=== PATIENT | male | born 1960 | race Two or more races ===

== ENCOUNTER 2024-04-30 09:18 | Inpatient (IN) | payer MEDICAID, OTHER ==
[~2024-04-30] VITALS: Ht 195.6 cm; Wt 181.8 kg
[~2024-04-30 09:18] MED LIST: LISI20TA56 PO
[2024-04-30 10:13] LABS: Basophils # (auto) 0 10 ^3/uL (0-0.2); Eosinophils # (auto) 0.2 10 ^3/uL (0-0.8); Hemoglobin 15.5 g/dL (13.5-17.5); Lymphocytes # (auto) 2.4 10 ^3/uL (0.4-5.4); Lymphocytes % (auto) 11.1 % (10.0-50.0); Mean Corpuscular Hemoglobin 28.3 pg (28.0-32.0); Mean Corpuscular Hgb Conc. 33.1 g/dL (32.0-36.0); Mean Corpuscular Volume 85.7 fL (80.0-100.0); Monocytes # (auto) 5.3 10 ^3/uL (0-1.3); Monocytes % (auto) 24.2 % (0.0-12.0); Neutrophils # (auto) 13.9 10 ^3/uL (1.6-8.6); Neutrophils % (auto) 63.7 % (37.0-80.0); Red Blood Cells 5.49 10^6/uL (4.5-5.90); Red Cell Distribution Width 15.2 % (11.8-14.3); White Blood Cell 21.8 10^3/uL (4.4-10.8)
[2024-04-30 10:20] VITALS: PULSE 89; RESP 28; O2SAT 90
[2024-04-30 10:30] LABS: Alanine Aminotransferase 29 U/L (7-40); Albumin 4.2 g/dL (3.2-4.8); Alkaline Phosphatase 101 U/L (46-116); Anion Gap 6 (5-15); Aspartate Aminotransferase 25 U/L (13-40); BUN/Creatinine Ratio 16.5 (10.0-20.0); Blood Urea Nitrogen 17 mg/dL (9-23); Calcium 9.4 mg/dL (8.5-10.1); Carbon Dioxide 29 mmol/L (20-30); Chloride 105 mmol/L (98-107); Glucose 146 mg/dL (74-106); Potassium 3.9 mmol/L (3.5-5.1); Sodium 140 mmol/L (136-145)
[2024-04-30 10:30] LABS: Urine Bacteria None Seen /hpf (None Seen)
[2024-04-30 10:31] LABS: Bilirubin, Total 2.4 mg/dL (0.2-1.0); Total Protein 6.5 g/dL (5.7-8.2)
[2024-04-30 10:53] LABS: Urine Blood 1+ /uL (Negative); Urine Clarity Turbid (Clear); Urine Color Orange (Yellow); Urine Mucus MANY (None Seen); Urine Protein, UAD 2+ (Negative); Urine Specific Gravity 1.032 (1.001-1.035); Urine Urobilinogen 4 mg/dL (Negative); Urine WBC 14 /hpf (0 - 3)
[2024-04-30 12:55] LABS: COVID19 ANTIGEN SOFIA FIA NEGATIVE (NEGATIVE)
[2024-04-30] MEDS: cefTRIAXone 2GM/50ML D5W 50 ML IV ONE (13:05)
[2024-04-30] MEDS ORDERED: DOCUSATE SOD 100 MG CAP PO PRN (14:15)
[2024-04-30] MEDS ORDERED: hydrALAZINE HCL 20 MG/ML VL IV PRN (14:15)
[2024-04-30] MEDS ORDERED: HYDROcodone-ACET 5/325MG TAB PO PRN (14:15)
[2024-04-30] MEDS ORDERED: ONDANSETRON HCL 4 MG/2 ML VIAL IV PRN (14:15)
[2024-04-30] MEDS ORDERED: NITROGLYCERIN 0.4 MG SL TAB SL PRN (14:45)
[2024-04-30] MEDS ORDERED: MORPHINE SULFATE INJ 2 MG/ml SYRG IV PRN (14:45)
[2024-04-30 17:51] LABS: Rapid Influenza A Negative (Negative); Rapid Influenza B Negative (Negative)
[2024-04-30 19:30] VITALS: PULSE 94; RESP 18; O2SAT 98
[2024-04-30 22:43] VITALS: BP 153/86; PULSE 93; RESP 19; TEMP 100; O2SAT 91
[2024-04-30 23:19] VITALS: PULSE 93; RESP 19; O2SAT 93
[2024-05-01] VITALS (8 sets, daily range): BP systolic 101–156; BP diastolic 59–101; PULSE 76–99; RESP 18–20; TEMP 98–100.3; O2SAT 90–100
[2024-05-01] MEDS: SODIUM CHLOR 0.9% PF (SALINE LOCK) 10ML VIAL/SYR IV SCH (00:05)
[2024-05-01] MEDS ORDERED: LISI10TA34 PO (01:22)
[2024-05-01] MEDS ORDERED: NAPR220C PO (01:22)
[2024-05-01 07:23] LABS: Alanine Aminotransferase 22 U/L (7-40); Albumin 3.7 g/dL (3.2-4.8); Alkaline Phosphatase 93 U/L (46-116); Anion Gap 12 (5-15); Aspartate Aminotransferase 18 U/L (13-40); BUN/Creatinine Ratio 16.7 (10.0-20.0); Blood Urea Nitrogen 15 mg/dL (9-23); Calcium 9.4 mg/dL (8.7-10.4); Carbon Dioxide 23 mmol/L (20-30); Chloride 105 mmol/L (98-107); Glucose 139 mg/dL (74-106); Potassium 3.4 mmol/L (3.5-5.1); Sodium 140 mmol/L (136-145)
[2024-05-01 07:24] LABS: Bilirubin, Total 1.9 mg/dL (0.2-1.0); Total Protein 6.4 g/dL (5.7-8.2)
[2024-05-01 07:25] LABS: Basophils # (auto) 0 10 ^3/uL (0-0.2); Basophils % (auto) 0.1 % (0.0-2.0); Eosinophils # (auto) 0.1 10 ^3/uL (0-0.8); Eosinophils % (auto) 0.4 % (0.0-7.0); Hematocrit 43.4 % (41.0-53.0); Hemoglobin 14.6 g/dL (13.5-17.5); Lymphocytes # (auto) 1.4 10 ^3/uL (0.4-5.4); Lymphocytes % (auto) 6.6 % (10.0-50.0); Mean Corpuscular Hgb Conc. 33.7 g/dL (32.0-36.0); Monocytes # (auto) 1.8 10 ^3/uL (0-1.3); Monocytes % (auto) 8.9 % (0.0-12.0); Neutrophils # (auto) 17.3 10 ^3/uL (1.6-8.6); Red Blood Cells 5.05 10^6/uL (4.5-5.90); Red Cell Distribution Width 14.9 % (11.8-14.3); White Blood Cell 20.6 10^3/uL (4.4-10.8)
[2024-05-01] MEDS: cefTRIAXone 1GM/50ML D5W 50 ML IV SCH (09:51)
[2024-05-01] MEDS: AZITHROMYCIN 500MG/ 250ML 250 ML IV ONE (16:25)
[2024-05-01] MEDS: ENOXAPARIN SOD 40 MG/0.4 ML SYRINGE SC ONE (16:25)
[2024-05-01] MEDS: ACETAMINOPHEN 325 MG TAB PO PRN (21:40)
[2024-05-01] MEDS: ENOXAPARIN SOD 40 MG/0.4 ML SYRINGE SC SCH (21:40)
[2024-05-02] VITALS (8 sets, daily range): BP systolic 112–146; BP diastolic 63–80; PULSE 62–100; RESP 16–20; TEMP 97.4–99; O2SAT 91–98
[2024-05-02 06:38] LABS: Anion Gap 5 (5-15); Carbon Dioxide 32 mmol/L (20-30); Chloride 104 mmol/L (98-107); Potassium 3.5 mmol/L (3.5-5.1); Sodium 141 mmol/L (136-145)
[2024-05-02 06:39] LABS: Calcium 9.3 mg/dL (8.5-10.1)
[2024-05-02 06:42] LABS: Basophils # (auto) 0 10 ^3/uL (0-0.2); Basophils % (auto) 0.2 % (0.0-2.0); Eosinophils # (auto) 0.2 10 ^3/uL (0-0.8); Eosinophils % (auto) 1.2 % (0.0-7.0); Hemoglobin 14.5 g/dL (13.5-17.5); Lymphocytes # (auto) 1.5 10 ^3/uL (0.4-5.4); Lymphocytes % (auto) 8.3 % (10.0-50.0); Mean Corpuscular Hemoglobin 28.8 pg (28.0-32.0); Mean Corpuscular Hgb Conc. 33.1 g/dL (32.0-36.0); Monocytes # (auto) 1.7 10 ^3/uL (0-1.3); Monocytes % (auto) 9.7 % (0.0-12.0); Neutrophils # (auto) 14.4 10 ^3/uL (1.6-8.6); Neutrophils % (auto) 80.6 % (37.0-80.0); Nucleated Red Blood Cells % 0.1 %; Red Blood Cells 5.05 10^6/uL (4.5-5.90); Red Cell Distribution Width 14.8 % (11.8-14.3); White Blood Cell 17.8 10^3/uL (4.4-10.8)
[2024-05-02 06:44] LABS: BUN/Creatinine Ratio 18.1 (10.0-20.0); Blood Urea Nitrogen 17 mg/dL (9-23); Glucose 120 mg/dL (74-106)
[2024-05-02] MEDS: ENOXAPARIN SOD 40 MG/0.4 ML SYRINGE SC ONE (09:56)
[2024-05-02] MEDS ORDERED: AZITHROMYCIN 500MG/ 250ML 250 ML IV SCH (10:00)
[2024-05-02] MEDS: IOHEXOL 350 MG/ML 100ML IJ ONE (11:28)
[2024-05-03] VITALS (8 sets, daily range): BP systolic 109–137; BP diastolic 50–94; PULSE 71–101; RESP 18–20; TEMP 97.5–98.6; O2SAT 93–98
[2024-05-03 09:34] LABS: Hepatitis B Surface Antigen Negative (Negative)
[2024-05-03] MEDS: ENOXAPARIN SOD 40 MG/0.4 ML SYRINGE SC SCH (09:44)
[2024-05-03 09:57] LABS: Hepatitis C Antibody Negative (Negative)
[2024-05-04] VITALS (7 sets, daily range): BP systolic 103–119; BP diastolic 43–73; PULSE 70–91; RESP 18–20; TEMP 97.9–98.6; O2SAT 92–96
[2024-05-04 15:44] LABS: Basophils # (auto) 0 10 ^3/uL (0-0.2); Basophils % (auto) 0.2 % (0.0-2.0); Eosinophils # (auto) 0.3 10 ^3/uL (0-0.8); Hematocrit 43.8 % (41.0-53.0); Hemoglobin 14.7 g/dL (13.5-17.5); Lymphocytes # (auto) 1.3 10 ^3/uL (0.4-5.4); Lymphocytes % (auto) 8.5 % (10.0-50.0); Mean Corpuscular Hemoglobin 29.3 pg (28.0-32.0); Mean Corpuscular Hgb Conc. 33.6 g/dL (32.0-36.0); Mean Corpuscular Volume 87.3 fL (80.0-100.0); Monocytes # (auto) 1.4 10 ^3/uL (0-1.3); Monocytes % (auto) 9.2 % (0.0-12.0); Neutrophils # (auto) 12.3 10 ^3/uL (1.6-8.6); Neutrophils % (auto) 80.1 % (37.0-80.0); Nucleated Red Blood Cells % 0.1 %; Red Blood Cells 5.02 10^6/uL (4.5-5.90); Red Cell Distribution Width 14.6 % (11.8-14.3); White Blood Cell 15.4 10^3/uL (4.4-10.8)
[2024-05-04 15:56] LABS: Chloride 104 mmol/L (98-107); Potassium 3.9 mmol/L (3.5-5.1); Sodium 138 mmol/L (136-145)
[2024-05-04 15:57] LABS: Anion Gap 4 (5-15); Calcium 9.5 mg/dL (8.7-10.4); Carbon Dioxide 30 mmol/L (20-30)
[2024-05-04 16:02] LABS: BUN/Creatinine Ratio 16.5 (10.0-20.0); Blood Urea Nitrogen 17 mg/dL (9-23); Glucose 101 mg/dL (74-106)
[2024-05-05] VITALS (7 sets, daily range): BP systolic 84–154; BP diastolic 50–87; PULSE 64–88; RESP 18–20; TEMP 97.7–97.9; O2SAT 93–99
[2024-05-05] MEDS ORDERED: DOXY-448 PO (15:09)
== END 2024-05-05 18:42 | disposition home or self-care (01) | DRG 720 ==
LOC: ER 09:18 → TELE 14:37 → TELE-E-ADS 22:10
PROVIDERS: ADMIT Internal Medicine Pulmonary Disease; ATTEND Internal Medicine
DX: A41.9 Sepsis, unspecified organism (principal); J96.01 Acute respiratory failure with hypoxia; I50.33 Acute on chronic diastolic (congestive) heart failure; J15.69 Pneumonia due to other Gram-negative bacteria; I11.0 Hypertensive heart disease with heart failure; J15.9 Unspecified bacterial pneumonia; E66.2 Morbid (severe) obesity with alveolar hypoventilation; N39.0 Urinary tract infection, site not specified; Z20.822 Contact with and (suspected) exposure to COVID-19; Z68.42 Body mass index [BMI] 45.0-49.9, adult; Z80.8 Family history of malignant neoplasm of other organs or systems; Z82.49 Family history of ischemic heart disease and other diseases of the circulatory system; K80.20 Calculus of gallbladder without cholecystitis without obstruction
CPT/HCPCS: 36415; 71045; 71275; 76705; 80048; 80053; 81001; 83036; 83605; 83880; 84484; 85025; 85379; 86803; 87040; 87086; 87340; 87426; 87804; 93005; 93306; 93970; 96365; G0378